=== PATIENT | female | born 1955 | race African-American/Black ===

== ENCOUNTER 2018-11-17 09:48 | Inpatient (IN) | payer OTHER ==
[~2018-11-17] VITALS: Ht 175.3 cm; Wt 100.0 kg
--- NOTE | 2018-11-17 10:02 | NUR ---
PLACED IN BED 4 FOR EVAL.
--- NOTE | 2018-11-17 10:30 | NUR ---
PER PT SHE HAS BEEN "FEELING OUT OF IT" FOR 2 WEEKS. PER PT SHE HAS BEEN MORE UNCOMFORTABLE THIS WEEK AND FEELS "TIRED". PT STS THAT SHE HAS BEEN HAVING HEAD ACHES WITH NO DIZZINESS. PT DENIES ANY ABDOMINAL PAIN, DENIES CEHST DISCOMFORT. PT STS THAT SHE HAS BEEN TRYING TO EAT AND SHE JUST FEELS NAUSEOUS. PT STS SHE HAS BEEN UNABLE TO EAT ALL WEEK. PT DNIES ANY ANURIA. +BOWEL SOUNDS ALL 4 QUAD. PT IS ALERT AND ORIENTED, SPEAKING IN CLEAR AND FULL SENTENCES. VSS. NO DISTRESS NOTED. RESP E/U. FLORESITA CONTINUE TO MONITOR.
--- NOTE | 2018-11-17 10:32 | NUR ---
XRAY AT BEDSIDE.
[2018-11-17 10:33] LABS: BASOPHIL % 0.5 % (0-2); PLATELET COUNT 205 x10^3mcL (130-400)
[2018-11-17 10:34] LABS: RED CELL DISTRIBUTION WIDTH 15.5 % (11.5-14.5)
[2018-11-17 10:46] LABS: CALCIUM 9.2 mg/dL (8.5-10.1); CARBON DIOXIDE 24.8 mmol/L (21-32); CREATININE SERUM 1.9 mg/dL (0.6-1.0); POTASSIUM SERUM 3.3 mmol/L (3.5-5.1)
[2018-11-17 10:51] LABS: BILIRUBIN DIRECT 0.12 mg/dL (0.0-0.2); BILIRUBIN TOTAL 0.3 mg/dL (0.20-1.00); TOTAL PROTEIN, SERUM 8.2 g/dL (6.4-8.2)
[2018-11-17 10:53] LABS: ALBUMIN 3.3 g/dL (3.4-5.0)
[2018-11-17 11:15] LABS: UA SPECIFIC GRAVITY 1.025 (1.005-1.035); microscopic required? YES; urine erythrocyte NEGATIVE (NEGATIVE)
[2018-11-17] MEDS ORDERED: LOSARTAN POTASS50 M1 PO (12:08)
[2018-11-17] MEDS ORDERED: HYDROCHLOROTHIA50 MG PO (12:09)
--- NOTE | 2018-11-17 13:07 | NUR ---
REPORT GIVEN TO DARNELL HARRY TO ASSUME CARE OF PT.
[2018-11-17 13:19] LABS: MAGNESIUM 2.1 mg/dL (1.8-2.4); PHOSPHOROUS 3.2 mg/dL (2.5-4.9)
[2018-11-17 13:42] VITALS: BP 108/73
--- NOTE | 2018-11-17 13:56 | NUR ---
RECEIVED PT FROM ER, PT ADMIT FOR ACUTE KIDNEY INJURY, HYPONATREMIA, PT IS A/O X4, VERBAL RESPONSIVE, ABLE TO TELL WHAT SHE NEEDS. LUNG SOUND CLEAR BILATERAL, NO COUGH, NO SOB, PT DENY ANY CHEST PAIN OR DISCOMFORT, BOWEL SOUND PRESENT ALL 4 QUADRATNS, NO DISTENTION, NO TENDER. BUT PT C/O HAS BEEN DIARRHEA FOR A COUPLE WEEKS, PEDAL PULSE PRESENT BOTH FEET, NO EDEMA, IV AT LEFT AC, NO LEAKING, NO INFILTRATION. ALL ADLS ASSIST, ALL NEED MET, CALL LIGHT IN REACH, WILL CONTINUE TO MONITOR.
--- NOTE | 2018-11-17 14:04 | NUR ---
AT 1330 - RECEIVED PATIENT FROM ER NURSE. SETTLED IN ROOM, ORIENTED TO SURROUNDINGS. ADMITTED WITH C/O GENERALIZED WEAKNESS. DX OF ACUTE KIDNEY INJURY. ADMISSION NURSE AT BEDSIDE, DOING HX AND ADMISSION ASSESSMENT. AT 1340 - SPOKE WITH ER NURSE TO CALRIFY IV INFUSION; CURRENT BAG OF NS IS PATIENT'S INITIAL BOLUS. CURRENT BP IS 108/73. PATIENT REFUSED TO TAKE ORDERED DOSE OF LORSATAN 50 MG. GIVEN 20 MEQ KCL FOR K+ OF 3.3 AT 1400 - DR PICHARDO AT BEDSIDE.
--- NOTE | 2018-11-17 14:35 | NUR ---
ULTRASOUND AT BEDSIDE FOR RENAL U/S.
[2018-11-17 14:59] LABS: FREE T4 1.43 ng/dL (0.76-1.46)
[2018-11-17 15:05] LABS: T3 TOTAL 1.05 ng/mL
[2018-11-17 15:40] VITALS: BP 110/70
[2018-11-17 16:01] VITALS: BP 114/58
--- NOTE | 2018-11-17 16:06 | NUR ---
AT 1530 - BOLUS COMPLETED. BP 110/70 HR 72. O2 SAT 98%. PATIENT AWARE OF NEED TO COLLECT STOOL SPECIMEN.
--- NOTE | 2018-11-17 18:25 | NUR ---
VSS AND WNL. NO C/O PAIN. SITTING UP IN BED EATING DINNER. IV INFUSING NS AT 80 ML/HR. WILL ENDORSE CARE TO NIGHT NURSE.
--- NOTE | 2018-11-17 19:46 | NUR ---
PT. AWAKE, ALERT, ORIENTED X4. DENIES HEADACHE OR DIZZINESS. BREATH SOUNDS CLEAR THROUGHOUT LUNG LAFLEUR, RESP. EVEN, UNLABORED. NO SOB NOTED. PT. ON RA. ABD. SOFT AND ROUND, BOWEL SOUNDS ACTIVE. PT. C/O HAVING MULTIPLE LOOSE STOOL, WATERY IN CONSISTENCY. SAMPLE COLLECTED. DENIES NAUSEA. PEDAL PULSES STRONG BLW. NO EDMA NOTED. IVF INFUSING WELL, SITE INTACT. CALL LIGHT WITHIN REACH. FAMILY AT BEDSIDE.
[2018-11-17 20:49] VITALS: BP 104/68
--- NOTE | 2018-11-18 00:25 | NUR ---
PT. WITH EYES CLOSED, APPEARS TO BE SLEEPING. NO C/O PAIN OR DISCOMFORT. CALL LIGHT WITHIN REACH.
[2018-11-18 05:34] VITALS: BP 107/64
--- NOTE | 2018-11-18 06:05 | NUR ---
PT. HAD UNEVENTFUL NIGHT. NO C/O PAIN, NO RESP. DISTRESS. RECEIVED SPECIMEN FOR STOOL C&S AND FOR URINE DRUG SCREEN. IVF INFUSING WELL, SITE INTACT. CALL LIGHT WITHIN REACH. WILL ENDORSE PT. CARE TO INCOMING NURSE.
[2018-11-18 06:31] LABS: BASOPHIL % 0.5 % (0-2); PLATELET COUNT 197 x10^3mcL (130-400)
[2018-11-18 06:47] LABS: CALCIUM 8.4 mg/dL (8.5-10.1); CARBON DIOXIDE 22.4 mmol/L (21-32); CREATININE SERUM 1.4 mg/dL (0.6-1.0); POTASSIUM SERUM 3.7 mmol/L (3.5-5.1)
[2018-11-18 06:52] LABS: RED CELL DISTRIBUTION WIDTH 15.1 % (11.5-14.5)
--- NOTE | 2018-11-18 07:00 | NUR ---
RECEIVED REPORT FROM JIMENEZ TIWARI RN, PT IN NO ACUTE RESP DISTRESS
[2018-11-18 07:06] LABS: AMPHETAMINE QUAL UR NONE DETECTED (See below)
--- NOTE | 2018-11-18 07:25 | NUR ---
PT IN BED, IN NO ACUTE RESP DISTRESS, NO FACIAL DROOP/SLURRED SPEECH, PERRLA, NO REDNESS/DRAINGE, RESP EVEN AND NON-LABORED, CHEST RISE SYMMETRICALLY, MEDSURG, ABD SOFT AND NON-TENDER TO TOUCH, BS ACTIVE X 4, REPORTED DIARRHEA X 2 LAST NIGHT, AMBULATORY, CONTINENT, BRP, PALP PULSES, CAP REFILL < 2 SECS, SKIN W.D.C, DENIED PAIN/DISCOMFORT/PRESSURE, DENIED N/V/D/DISSINESS, IV PATENT AND INFUSING WELL, ALL NEEDS ADDRESSED AT THIS TIME, SAFETY PROTOCOL FOLLOWED, CONTINUE TO MONITOR
[2018-11-18 08:47] VITALS: BP 110/63
--- NOTE | 2018-11-18 09:37 | NUR ---
PT IN NO ACUTE RESP DISTRESS, AM MED GIVEN PER MD ORDERED VIA EMAR, TAKEN WELL, NO ASE NOTED AT THIS TIME, SAFETY MONITOR, CONTINUE TO MONITOR
--- NOTE | 2018-11-18 12:56 | NUR ---
PT RESTING IN BED, IN NO ACUTE RESP DISTRESS, FAMILY AT BEDSIDE, SAFETY MONITOR, CONTINUE TO MONITOR
--- NOTE | 2018-11-18 14:17 | NUR ---
PT SLEEPING IN BED, IN NO APPARENT DISTRESS, SAFETY PRECAUTION FOLLOWED, CONTINUE TO MONITOR
[2018-11-18 16:55] VITALS: BP 104/57
--- NOTE | 2018-11-18 18:20 | NUR ---
PT RESTING IN BED, FAMILY AT BEDSIDE, IN NO ACUTE RESP DISTRESS, VERBAL, ABLE TO MAKE NEEDS KNOWN, CHEST RISE SYMMETRICALLY, ABD SOFT AND NON-TENDERED TO TOUCH, AMBULATORY W/ ASSIST, CONTINENT, DENIED PAIN/CP/PRESSURE, DENIED N/V/DIZZINESS, ALL NEEDS ADDRESSED AT THIS TIME, SAFETY PROTOCOL FOLLOWED, WILL CONTINUE TO MONITOR
--- NOTE | 2018-11-18 19:56 | NUR ---
PT. AWAKE, ALERT, ORIENTED X4. DENIES HEADACHE OR DIZZINESS. PT. W/ GENERALIZED WEAKNESS. STATED THAT SHE HAS NOT RESTED WELL TODAY, STATED THAT SHE IS REALLY TORED AND STILL HAVING DIARRHEA. DAY SHIFT CHARGE NURSE, ERIN, ADMINISTERED PEPTOBISMOL TO PT. ABD. SOFT AND ROUND, BOWEL SOUNDS ACTIVE. DENIES NAUSEA. BREATH SOUNDS CLEAR THROUGHOUT LUNG LAFLEUR, RESP. EVEN, UNLABORED. NO SOB NOTED. PT. ON RA. IVF INFUSING WELL, NEW IV SITE STARTED BY DAY SHIFT CHARGEERIN TO RFA, SITE INTACT. TRACIN AT BEDSIDE. CALL LIGHT WITHIN REACH.
[2018-11-18 20:28] VITALS: BP 114/46
--- NOTE | 2018-11-19 00:37 | NUR ---
PT. RESTING QUIETLY. NO COMPLAINTS THUS FAR. EYES CLOSED. CALL LIGHT REMAINS WITHIN REACH.
--- NOTE | 2018-11-19 05:25 | NUR ---
PT. AWAKE, SLEPT WELL MOSTLY THROUGHOUT NIGHT. PT. STATED THAT SHE WAS OOB TO BATHROOM WITH LOOSE BM THROUGHOUT THE NIGHT X4. PT. ALSO STATED THAT THE FREQUENCY HAS DECREASED FOR HER COMPARED TO THE LAST FEW DAYS. DENIES ABD. PAIN, DENIES NAUSEA. CALL LIGHT WITHIN REACH.
[2018-11-19 05:36] VITALS: BP 100/53
[2018-11-19 06:59] LABS: BASOPHIL % 0.4 % (0-2); PLATELET COUNT 204 x10^3mcL (130-400)
--- NOTE | 2018-11-19 07:05 | NUR ---
RECEIVED PT FROM NIGHT NURSE. PT IS LAYING DOWN IN BED WITH HBO UP RESTING. PT LOOKS TO BE IN NO ACUTE DISTRESS AND DENIES ANY PAIN AT THIS TIME. PT STATES CONTINUING TO HAVE EPISODES OF DIARRHEA. RESPIRATIONS EVEN AND UNLABORED ON ROOM AIR. IV SITE PATENT WITH NO SIGNS OF ERYTHEMA OR SWELLING WITH IV FLUIDS INFUSING. BED IN LOWEST POSITION, CALL LIGHT WITHIN REACH. WILL CONTINUE TO MONITOR.
[2018-11-19 07:16] LABS: ALBUMIN 2.7 g/dL (3.4-5.0); BILIRUBIN TOTAL 0.28 mg/dL (0.20-1.00); CALCIUM 8.3 mg/dL (8.5-10.1); CARBON DIOXIDE 19.6 mmol/L (21-32); CREATININE SERUM 1.2 mg/dL (0.6-1.0); POTASSIUM SERUM 3.8 mmol/L (3.5-5.1); TOTAL PROTEIN, SERUM 6.9 g/dL (6.4-8.2)
[2018-11-19 07:18] LABS: RED CELL DISTRIBUTION WIDTH 15.4 % (11.5-14.5)
[2018-11-19 09:44] VITALS: BP 106/65
--- NOTE | 2018-11-19 11:45 | NUR ---
PT STATES THAT SHE FEELS HAS THOUGH THERE IS AN ABCESS IN HER MOUTH ON THE UPPER LEFT SIDE. PT STATES IT IS PAINFUL AND THERE IS DISCHARGE THAT HAS A SOUR TASTE TO IT. PT STATES IS DIFFICULT TO EAT AT TIMES SINCE THE ABCESS MAKES IT UNCOMFORTABLE. WILL NOTIFY RESIDENT.
--- NOTE | 2018-11-19 11:55 | NUR ---
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), HTN, Hx Sepsis 2/2 tonsillitis, Hx Severe sinus infection PSHx: Hysterectomy, no complications Labs: CREAT 1.2H, ALB 2.7L, WBC 3.6L, HGB 10.2L, AST 63H, ALT 62H Meds: Ambien, Ativan, Colace, zofran Diet: BRAT PO Intake: (11/17) dinner 30% Ht: 175.26cm (69") Wt: 100.2 kg (220#) BMI: 32.6 kg/m2 Bed scale: 229# IBW: 145# (66 kg) %IBW: 152 UBW: 232# Age: 62/F Food Allergies: NKFA Skin: intact Patrick: 23 Edema: none GI: c/o diarrhea Last BM: 11/18 Trigger: N/V/D >3d, unintentional wt loss >10# x 1 month, poor PO >3d Per H&P, Pt is a 62 yoF with a PMH of discoid lupus erythematosus, HTN, and Hx severe sinus infection presents with generalized fatigue for the past 6 days[address] RDN Visit (11/19): Patient was alert and oriented and she said that she ate about 50% breakfast this morning. Pt. understands that she is on a BRAT diet because of her diarrhea. Pt. reports of having lost 12# x 1 week d/t severe diarrhea and poor PO. Pt's. diet order has been changed to clear liquid. Per Dr. Perkins, pt. will be schedule for colonoscopy either today or tomorrow. Problem with: N/V/D/C: diarrhea Problems with: Chewing/Swallowing: slight chewing difficulty due to abscess near jaw per patient. (reported to RN Lydia) Current appetite: poor Recent wt change: lost 12# x 1 week %wt change: 5% Vitamin/Supplement use: Vitamin D Special diet at home: Regular Physical activity: none Nutrition education given: PO was encouraged, Pt. willing to drink ONS Ensure. Food-drug interactions: Colace- high fiber w/2543-5772 ml fluids Education given: no Estimated Nutritional Needs Based on adjusted body weight 75 kg Energy: 2958-6344 kcal/d (30-35 kcal/kg) Protein: 90-97 g/d (1.2-1.3 g/kg) - preserve LBM Fluid: 8749-5456 ml/d (1 ml/kcal) or per doctor Nutrition Diagnosis 1. Inadequate oral intake related to poor appetite as evidenced by documented PO <75%. 2. Altered GI function related to medical condition as evidenced by diarrhea. Intervention 1. Recommend continuing clear liquid diet (d/t planned procedure). 2. Progress to regular diet when medically appropriate/ tolerated. 3. Recommend probiotic for gut health, if medically appropriate. Discussed recommendations with Dr. Perkins. Monitor/Evaluate Goal: PO intake at least 75% of estimated needs Monitor: PO intake, Labs, GI function F/U in 2-3 days as high risk 11/21-
[2018-11-19 17:30] VITALS: BP 117/60
--- NOTE | 2018-11-19 18:50 | NUR ---
PT IS LAYING DOWN IN BED WITH HOB UP RESTING. PT LOOKS TO BE IN NO ACUTE DISTRESS AT THIS TIME AND DENIES ANY PAIN. IV SITE PATENT WITH NO SIGNS OF ERYTHEMA OR SWELLING WITH IV FLUIDS INFUSING. RESPIRATIONS EVEN AND UNLABORED ON ROOM AIR. BED IN LOWEST POSITION, CALL LIGHT WITHIN REACH. FAMILY MEMBER AT BEDSIDE. WILL ENDORSE TO ONCOMING SHIFT.
--- NOTE | 2018-11-19 19:20 | NUR ---
RECIEVED PT IN NO ACUTE DISTRESS. AOX4. MED SURG. BREATHING E/U. BOWEL SOUNDS ACTIVE X 4. C/O DIARRHEA. DENIES PAIN. IV TO RFA, PATENT, NO REDNESS/SWELLING. BED IN LOWEST POSITON, 2 SIDE RAILS UP, CALL LIGHT IN REACH. INSTRUCTED TO CALL FOR ASSISTANCE.
[2018-11-19 21:03] VITALS: BP 128/52
--- NOTE | 2018-11-20 02:03 | NUR ---
RESTING IN BED WITH EYES CLOSED. BREATHING E/U. NO ACUTE DISTRESS NOTED. WILL CONTINUE TO MONITOR.
[2018-11-20 05:42] VITALS: BP 116/66
[2018-11-20 06:16] LABS: BASOPHIL % 0.8 % (0-2); PLATELET COUNT 226 x10^3mcL (130-400)
[2018-11-20 06:22] LABS: CALCIUM 8.2 mg/dL (8.5-10.1); CARBON DIOXIDE 20.7 mmol/L (21-32); CREATININE SERUM 1.1 mg/dL (0.6-1.0); MAGNESIUM 1.4 mg/dL (1.8-2.4); PHOSPHOROUS 2.9 mg/dL (2.5-4.9); POTASSIUM SERUM 3.7 mmol/L (3.5-5.1)
--- NOTE | 2018-11-20 06:30 | NUR ---
NO C/O WEAKNESS OVERNIGHT. NO ACUTE DISTRESS NOTED. NO ACUTE CHANGES. WILL ENDORSE TO ONCOMING RN
[2018-11-20 06:47] LABS: RED CELL DISTRIBUTION WIDTH 15.3 % (11.5-14.5)
--- NOTE | 2018-11-20 07:10 | NUR ---
RECEIVED PT FROM NIGHT NURSE. PT IS LAYING DOWN IN BED WITH HOB UP RESTING. RESPIRATIONS EVEN AND UNLABORED ON ROOM AIR. PT LOOKS TO BE IN NO ACUTE DISTRESS AND DENIES ANY PAIN. PT STATES STILL HAVING DIARRHEA BUT NUMBER OF BM IS IMPROVING FROM WHEN SHE CAME IN. IV SITE PATENT WITH NO SIGNS OF ERYTHEMA OR SWELLING WITH IV FLUIDS INFUSING. BED IN LOWEST POSITION, CALL LIGHT WITHIN REACH. WILL CONTINUE TO MONITOR.
[2018-11-20 09:12] VITALS: BP 11/57
--- NOTE | 2018-11-20 15:30 | NUR ---
PT IS SITTING UP ON THE EDGE OF THE BED. PT LOOKS TO BE IN NO ACUTE DISTRESS AT THIS TIME AND DENIES ANY PAIN. PT STATES THAT SHE IS HAVING LOOSE BM FREQUENTLY IN RESPONSE TO THE BOWEL PREP. PT AMBULATORY AND ABLE TO WALK TO THE BATHROOM WITHOUT ASSISTANCE. FAMILY MEMBERS AT BEDSIDE. CALL LIGHT WITHIN REACH. WILL CONITNUE TO MONITOR.
[2018-11-20 17:07] VITALS: BP 133/82
--- NOTE | 2018-11-20 18:35 | NUR ---
PT IS LAYING DOWN IN BED WITH HOB UP TALKING WITH FAMILY MEMBER. PT LOOKS TO BE IN NO ACUTE DISTRESS AT THIS TIME AND DENIES ANY PAIN. PT STATES HAVING EPISODES OF WATERY DIARRHEA IN RESPONSE TO BOWEL PREP. IV SITE PATENT WITH NO SIGNS OF ERYTHEMA OR SWELLING WITH IV FLUIDS INFUSING. BED IN LOWEST POSITION, CALL LIGHT WITHIN REACH, FAMILY MEMBER AT BEDSIDE. WILL ENDORSE TO ONCOMING SHIFT.
--- NOTE | 2018-11-20 19:20 | NUR ---
RECIEVED PT IN NO ACUTE DISTRESS. AOX4. MED SURG. BREATHING E/U. NPO FOR COLONSCOPY TOMORROW, PT AWARE. BOWEL PREP COMPLETE. DENIES PAIN. IV TO RFA, PATENT, NO REDNESS/SWELLING. BED IN LOWEST POSITON, 2 SIDE RAILS UP, CALL LIGHT IN REACH. INSTRUCTED TO CALL FOR ASSISTANCE.
[2018-11-20 19:53] VITALS: BP 114/64
--- NOTE | 2018-11-21 01:05 | NUR ---
PT UP TO BATHROOM FOR BM. BM NOT CLEAR AT THIS TIME. NO ACUTE DISTRESS NOTED. WILL CONTINUE TO MONITOR.
[2018-11-21 06:10] VITALS: BP 114/62
[2018-11-21 06:21] LABS: BASOPHIL % 0.7 % (0-2); PLATELET COUNT 262 x10^3mcL (130-400)
[2018-11-21 06:37] LABS: CALCIUM 8.7 mg/dL (8.5-10.1); CARBON DIOXIDE 19.3 mmol/L (21-32); CREATININE SERUM 1.2 mg/dL (0.6-1.0); MAGNESIUM 1.5 mg/dL (1.8-2.4); PHOSPHOROUS 3.2 mg/dL (2.5-4.9); POTASSIUM SERUM 4.2 mmol/L (3.5-5.1)
--- NOTE | 2018-11-21 06:48 | NUR ---
PT CONTINUES TO HAVE BM. NOT CLEAR YET. NO ACUTE DISTRESS NOTED. WILL ENDORSE TO ONCOMING RN
[2018-11-21 08:44] VITALS: BP 117/51
--- NOTE | 2018-11-21 10:24 | NUR ---
AT 0710 - RECEIVED PATIENT FROM NIGHT NURSE. SLEEPING. RESPIRATIONS REGULAR. IV INFUSING NS AT 80 ML/HR. AT 0800 - PATIENT AWAKE, ALERT AND ORIENTED. REPORTS WATERY STOOL. NPO FOR COLONSCOPY. AT 0845 - 2 G MAGNESIUM RIDER COMMENCED FOR MG LEVEL OF 1.5 PATIENT ALSO GIVEM SCHEDULED LACTULOSE, MERALAX AND SENAKOT FOR CONTINUATION OF BOWEL PREP. AT 1015 - REPORT GIVEN TO GI NURSE.
--- NOTE | 2018-11-21 11:25 | NUR ---
AT 1040 - TAKEN TO GI LAB
--- NOTE | 2018-11-21 11:34 | NUR ---
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 Per RN Dahlia, pt. has poor PO, does not have any N/V. Per progress note (11/20), pt is scheduled for colonoscopy today. Pt. also reported one solid stool on (11/19), and diarrhea is less watery with smaller quantity. Admits appetite is still decreased, but would eat if given food. Admits sore in mouth that she calls an abscess, no open purulence. Estimated Nutritional Needs Based on adjusted body weight 75 kg Energy: 5341-2704 kcal/d (30-35 kcal/kg) Protein: 90-97 g/d (1.2-1.3 g/kg) - preserve LBM Fluid: 8837-2611 ml/d (1 ml/kcal) or per doctor Nutrition Diagnosis 1. Inadequate oral intake related to poor appetite as evidenced by documented PO <75%.(ongoing) 2. Altered GI function related to medical condition as evidenced by diarrhea. (ongoing) Intervention 1. Recommend continuing clear liquid diet (d/t planned procedure). 2. Progress to regular diet when medically appropriate/ tolerated. Discussed recommendations with DEPUTY CLERK Vicente, she said that pt. will be D/C after colonoscopy. Monitor/Evaluate Goal: Have pt meet at least 75% of estimated needs Monitor: PO intake, Labs, GI function F/U in 2-3 days as high risk 11/23-
--- NOTE | 2018-11-21 11:35 | NUR ---
1. Recommend continuing clear liquid diet (d/t planned procedure). 2. Progress to regular diet when medically appropriate/ tolerated. Discussed recommendations with LATEX CASTER Vicente, she said that pt. will be D/C after colonoscopy.
[2018-11-21 13:00] VITALS: BP 128/84
--- NOTE | 2018-11-21 13:13 | NUR ---
PATIENT BACK IN ROOM FOLLOWING COLONOSCOPY. AWAKE, ALERT AND ORIETNED. VS WNL. O2 SAT 99% ON ROOM AIR. SITTING UP IN BED EATING LUNCH; REGULAR FOOD.
--- NOTE | 2018-11-21 16:27 | NUR ---
PER AEROSPACE PROJECT MANAGER DC. PATIENT TO STAY IN HOSPITAL TODAY. PLAN FOR DC HOME TOMORROW. SPOKE WITH PATIENT. SHE IS AWARE OF PLAN. VISITING WITH FAMILY.
[2018-11-21 16:45] VITALS: BP 126/72
--- NOTE | 2018-11-21 18:54 | NUR ---
VSS AND WNL. AFEBRILE. NO C/O PAIN, NAUSEA OR VOMITING. WILL ENDORSE CARE TO NIGHT NURSE.
--- NOTE | 2018-11-21 19:48 | NUR ---
SHIFT REASSESSMENT DONE.PATIENT ALERT AND ORIENTED.MAKE NEEDS KNOWN,BREATHING EASY.HEPLOCK RFA INTACT.MEDSURG.VOIDING. AT BEDSIDE,SUPPORTIVE OF CARE.CALL LIGHT IN REACH.
--- NOTE | 2018-11-21 21:00 | NUR ---
PATIENT HAS NO PM MEDS. LEFT FOR TONIGHT.PATIENT COOPERATIVE OF CARE.
[2018-11-21 22:01] VITALS: BP 122/56
--- NOTE | 2018-11-21 23:45 | NUR ---
MIDNIGHT MED GIVEN AT THIS TIME.WANTED ROOM CLOSE.CALL LIGHT IN REACH.
--- NOTE | 2018-11-22 03:12 | NUR ---
CHECKED AT INTERVALS FOR NEEDS AND SAFETY.ROOM/DOOR CLOSE,REMINDED TO CALL WHEN NEED HELP.
--- NOTE | 2018-11-22 06:19 | NUR ---
PATIENT SLEEPING COMFORTABLY.STILL WANT DOOR SHUT.NO RESP DISTRESS.WILL CONTINUE PLAN OF CARE.
[2018-11-22 06:47] VITALS: BP 110/57
--- NOTE | 2018-11-22 08:10 | NUR ---
AAO TIMES 4. MED SURG PATIENT. LUNGS CTA. NO SOB. O2 SAT ON RA 98%. BS'S ACTIVE TIMES 4. SOLOMON STRONG. PERIPHERAL PULSES PALPABLE. NO EDEMA. IV SITE RFA CDI. COOPERATIVE AND PLEASANT. WOUND TO THE ROOF OF HER MOUTH FEELS BETTER SHE STATES, STATES SHE DOESNT NEED PAIN MEDICINE FOR IT. WHEN VISUALIZED WITH A FLASH LIGHT, THERE IS NO OPEN AREA ON ROOF OF MOUTH, JUST A LIGHT BROWN DISCOLORATION TO BACK ROOF OF MOUTH. NO C/O PAIN.
[2018-11-22 09:07] VITALS: BP 138/75
[2018-11-22] MEDS ORDERED: FLA500 PO (11:02)
[2018-11-22 11:30] VITALS: BP 138/75
--- NOTE | 2018-11-22 11:38 | NUR ---
PATIENT STATES SHE WILL CONTACT DR SANTANA'S OFFICE ON SATURDAY TO MAKE A FOLLOW UP APPT WITH HIM IN 2-[address] SANTANA STATES HIS OFFICE ISNT OPEN TODAY TO MAKE APPOINTMENTS.
--- NOTE | 2018-11-22 12:01 | NUR ---
I GAVE HER DISCHARGE INSTRUCTIONS AND PRESCRIPTION. I REMOVED SALINE LOCK, ANGIO INTACT. SHE VERBALIZED "I UNDERSTAND" TO ALL INSTRUCTIONS. DR SANTANA SAW HER AND ADVISED HER TO TAKE A PACKET OF METAMUCIAL DAILY, JUST BUY IT FROM THE DRUG STORE IN A FULL GLASS OF WATER.
--- NOTE | 2018-11-22 12:59 | NUR ---
AT 1240 - PATIENT DISCHARGED HOME WITH . ESCORTED AMBULATORY TO FROM [facility]
== END 2018-11-22 12:41 | disposition home or self-care (01) | DRG 371 ==
LOC: ED 09:48 → MU 12:07
PROVIDERS: Internal Medicine; Internal Medicine Gastroenterology; Student in an Organized Health Care Education/Training Program; ADMIT Internal Medicine
PROC: 0DBG8ZZ Excision of Left Large Intestine, Via Natural or Artificial Opening Endoscopic (ICD-10-PCS; principal; 2018-11-21 14:00)
PROC: 0DBN8ZZ Excision of Sigmoid Colon, Via Natural or Artificial Opening Endoscopic (ICD-10-PCS; 2018-11-21 14:00)
PROC: 0DBE8ZX Excision of Large Intestine, Via Natural or Artificial Opening Endoscopic, Diagnostic (ICD-10-PCS; 2018-11-21 14:00)
DX: A04.9 Bacterial intestinal infection, unspecified (principal); N17.0 Acute kidney failure with tubular necrosis; E87.1 Hypo-osmolality and hyponatremia; K57.30 Diverticulosis of large intestine without perforation or abscess without bleeding; D12.4 Benign neoplasm of descending colon; D12.5 Benign neoplasm of sigmoid colon; E87.6 Hypokalemia; E86.0 Dehydration; K64.8 Other hemorrhoids; L93.0 Discoid lupus erythematosus; I10 Essential (primary) hypertension; D72.819 Decreased white blood cell count, unspecified; F17.210 Nicotine dependence, cigarettes, uncomplicated
CPT/HCPCS: 45378; 82962; 83880; 84439; 87046; 87046-59; G0378; J1200; J1610; J1956; J2250; J2310; J3010; J3475; J3490; J7030; Q0092